=== PATIENT | male | born 1990 | race Caucasian/White ===

== ENCOUNTER 2017-09-23 05:19 | Emergency (ER) | payer OTHER ==
[~2017-09-23] VITALS: Ht 180.3 cm; Wt 72.6 kg
[~2017-09-23 05:19] MED LIST: BACTRIM DS TAB1 EACH PO; NORCO 5-325 TA1 EACH PO
[2017-09-23 05:20] VITALS: BP 128/78
--- NOTE | 2017-09-23 05:47 | ED ANIMAL BITE/WOUND CHECK ---
History of Present Illness General Chief Complaint: General Adult Stated Complaint: TAILBONE ABCESS PACKING ?MISSING Source: patient, family, old records Exam Limitations: no limitations Vital Signs & Intake/Output Vital Signs & Intake/Output Vital Signs Date Time Temp Pulse Resp B/P B/P Pulse O2 O2 Flow FiO2 Mean Ox Delivery Rate 09/23 0520 98.0 78 18 128/78 98 Room Air Allergies Coded Allergies: Penicillins (ANAPHYLAXIS 08/21/17) bee pollen (ANAPHYLAXIS 08/21/17) shellfish derived (ANAPHYLAXIS 08/21/17) Reconcile Medications Hydrocodone/Acetaminophen ([place] 5-325 Tablet) 5 MG-325 MG TABLET 1-2 TAB PO Q4-6 PRN PRN PAIN Sulfamethoxazole/Trimethoprim (Bactrim Ds Tablet) 800 MG-160 MG TABLET 1 TAB PO BID ABSCESS Sulfamethoxazole/Trimethoprim (Bactrim Ds Tablet) 800 MG-160 MG TABLET 1 TAB PO BID ABSCESS Triage Nurses Notes Reviewed? yes HPI: Patient presents for repeat packing of pilonidal cyst. Patient states the pain is much improved. There are no fevers or chills. Patient has no current complaints. Past History Travel History Traveled to [place] past 21 day No Medical History Any Pertinent Medical History? see below for history Neurological: NONE EENT: NONE Cardiovascular: NONE Respiratory: NONE Gastrointestinal: NONE Hepatic: NONE Renal: polycystic kidney disease Surgical History Surgical History: non-contributory Psychosocial History What is your primary language Burmese Tobacco Use: Never used ETOH Use: occasional use Illicit Drug Use: denies illicit drug use Family History Hx Contributory? No Review of Systems Review of Systems Constitutional: Reports: no symptoms. Respiratory: Reports: no symptoms. Cardiovascular: Reports: no symptoms. Musculoskeletal: Reports: no symptoms. Neurological/Psychological: Reports: no symptoms. Immunologic/Allergic: Reports: no symptoms. Physical Exam Physical Exam General Appearance: well developed/nourished Eyes: Bilateral: PERRL, EOMI. Respiratory: normal breath sounds, chest non-tender, no respiratory distress, lungs clear Cardiovascular: regular rate/rhythm, normal peripheral pulses Skin: ABSCESS IS STILL APPROXIMATELY 1 INCH DEEP. tHE PACKING HAD COME OUT AT SOME POINT OVER THE PAST DAY OR 2. tHE PROTEIN ALL HAD FORMED. bLUNT DISSECTION WAS USED. wOUND WAS REPACKED. Progress Differential Diagnosis: abscess Plan of Care: REPACK Departure Departure Disposition: HOME OR SELF CARE Condition: Stable Clinical Impression Primary Impression: Wound check, abscess Referrals: Patient Has No Primary Care Dr (PCP/Family) Additional Instructions: HAVE PACKINGCHANGED IN 2 MORE DAYS Departure Forms: Customer Survey General Discharge Information
== END 2017-09-23 05:52 ==
LOC: ERH 05:19
DX: Z48.00 Encounter for change or removal of nonsurgical wound dressing (principal)